=== PATIENT | male | born 1930 | race Caucasian/White ===

== ENCOUNTER 2016-12-14 16:23 | Inpatient (IN) | payer MEDICARE, BC ==
--- NOTE | ~2016-12-14 | CR72 ---
[facility] A Service of [facility] & [facility] RADIOLOGY TEXT RESULTS PATIENT: RYLEE JHAVERI LOCATION: [facility] [id number] : [birth year] UNIT #: [id number] AGE: [address]: Tammy Carlton MD SEX: M ORDER DR: [id number] [facility] [address] [place], [place] [address] [id number] I MR#: [id number] Acc #: [id number] NAME: RYLEE JHAVERI. : 1930 SEX: M STUDY DATE/TIME: 12/14/2016 18:16 UNIT: CEDOF ROOM: 48015 STUDY DESCRIPTION: CR Chest Single View Portable Attending Physician: Lor Silva M.D. Ordering Physician: Ed Daniel Sky M.D. Primary Care Physician: Faina Betancourt A.P.R.N. MEDICAL IMAGING REPORT This report is preliminary unless electronic signature is present EXAM Portable chest x-ray, 12/14/2016 HISTORY Cough and dyspnea. Short of air, weakness. Began today. FINDINGS 2 AP radiographs of the chest are presented. Comparison 12/12/2016. Degenerative changes in spine and shoulders without acute-appearing bony abnormality. Dextroscoliosis lower thoracic and visualized lumbar spine. Heart upper limits of normal in size to borderline enlarged. Stable appearance. The lungs are hyperinflated, suggesting underlying emphysema. The left lung is otherwise clear. New patchy airspace disease at the right lung base concerning for right basilar pneumonia. This is felt to be largely in the right lower lobe toward the base. There is some slight obscuration of inferior right heart border, which could reflect some degree of right middle lobe distribution. Follow up to resolution is recommended. Given distribution, correlate with any risk factors for aspiration. Dictated by... Jim Osorio M.D. THIS IS AN ELECTRONICALLY VERIFIED REPORT Jim Osorio M.D. at 12/15/2016 10:26 PM LUCIO/bushra TD: 12/15/2016 00:03 JOB #: [id number] MEDICAL IMAGING REPORT Page 1 of 1 COPY
--- NOTE | ~2016-12-14 | EKG ---
PATIENT: RYLEE JHAVERI UNIT #: [id number] Ventricular Rate: 90 BPM Atrial Rate: 90 BPM P-R Interval: 130 ms QRS Duration: 64 ms Q-T Interval: 350 ms QTC Calculation(Bezet): 428 ms P [place]: 90 degrees Calculated R [place]: 64 degrees Calculated T [place]: 77 degrees Diagnosis Line: Sinus rhythm with marked sinus arrhythmia Diagnosis Line: Otherwise normal ECG Diagnosis Line: When compared with ECG of 12-DEC-2016 19:26, Diagnosis Line: Premature ventricular complexes are no longer Diagnosis Line: Present Diagnosis Line: Premature supraventricular complexes are no longer Diagnosis Line: Present Diagnosis Line: Confirmed by DEIB LOPEZ MD ([id number]) on Diagnosis Line: 12/15/2016 8:49:11 AM INTERPRETING MD: JOHN ROSARIO
--- NOTE | ~2016-12-14 | DS ---
Unit #: [id number] #: [id number] Patient: RYLEE COHEN [id number] [address] [address] [id number] MR#: [id number] NAME: RYLEE COHEN. ROOM: 476 Age: 86 Sex: M Admission Date: 12/14/2016 : 1930 Discharge Date: 12/17/2016 Attending Physician: Tammy Carlton M.D. Primary Care Physician: Faina Betancourt A.P.R.N. DISCHARGE SUMMARY PRINCIPAL DIAGNOSES 1. Sepsis secondary to right lower lobe aspiration pneumonia. 2. 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 3. Chronic hypoxic respiratory failure maintained on two liters of oxygen per nasal cannula continuously. 4. Acute exacerbation of chronic obstructive pulmonary disease. 5. Odynophagia with pending EGD. 6. Dementia. 7. Severe vitamin B12 deficiency with vitamin B12 level of 169. 8. Moderate protein malnutrition. 9. Chronic systolic congestive heart failure with ejection fraction of 35% to 40%. No acute exacerbation. 10. Coronary artery disease. 11. History of aortic aneurysm. 12. Hyperlipidemia. 13. Benign prostatic hypertrophy per history. 14. Chronic back pain. 15. Dementia, moderate. 16. Spontaneous left periorbital ecchymosis. 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 Torre, Gastroenterology. PROCEDURES 1. EGD which is currently pending. 2. Chest x-ray on December 14, 2016, with underlying emphysema. Right basilar infiltrate noted. CLINICAL HISTORY AND HOSPITAL COURSE Mr. Cohen is an 86-year-old male who presented to the emergency department with shortness of breath. Patient was treated with steroids and bronchodilators. Chest x-ray however, revealed pneumonia, and patient was found to have an elevated white blood cell count of 16,000. The patient was subsequently admitted. In regards to patient's pneumonia, he was started on empiric IV antibiotics. Fortunately, the patient's leukocytosis resolved rather quickly, and he has remained afebrile throughout hospitalization. Given the location of his pneumonia, there are concerns for underlying aspiration particularly given patient's complaints of odynophagia and dysphagia as outlined below. The patient underwent a video swallow study which did not reveal any evidence of reflux nor any dysphagia. Patient was placed on a regular diet with thin liquids. I am going to change Unit #: [id number] #: [id number] Patient: RYLEE COHEN patient to oral Omnicef to complete a course of antibiotics as an outpatient. Patient did have an associated COPD exacerbation. He was placed on IV steroids, and these have been tapered down to pills. He will complete a very short course of steroids as an outpatient. I will note, his hypoxia remained at baseline. Patient had recurrent numerous complaints about heartburn and chest pain throughout hospitalization. Serial troponins remained negative and EKGs were unremarkable. This chest pain would happen at rest and was primarily associated with eating. Given this in combination with his probable aspiration pneumonia, Dr. Torre was consulted. Patient is to undergo EGD later today. Patient was found to be mildly anemic and significantly vitamin B12 deficient which we will replace orally on tablets as an outpatient with perhaps injections in the office if levels do not increase. I anticipate discharge home later today with home health given his mild deconditioning if EGD is unremarkable. DISCHARGE CONDITION Stable. DISCHARGE STATUS Discharge to home. DISCHARGE MEDICATIONS 1. Omnicef 300 mg b.i.d. 2. Prednisone 20 mg tablets, 2 tablets for 2 days, 1 tablet for 2 days, then discontinue. 3. Dulera 100/5 mcg 2 puffs b.i.d. 4. Protonix 40 mg daily. 5. Maalox 30 mL p.r.n. for indigestion. 6. Doxepin 10 mg daily. 7. Temazepam 30 mg at bedtime. 8. Colace 100 mg daily p.r.n. 9. Lutein 20 mg daily. 10. Daily multivitamin. 11. Vicodin ES 7.5/300 mg at bedtime. 12. Tramadol 50 mg p.o. q.6 hours p.r.n. for pain. 13. Os-Owen 500 plus D 1 daily. 14. Vitamin B12 at 1000 mcg p.o. daily. DISCHARGE INSTRUCTIONS 1. Patient can follow a regular diet. 2. He can increase his activity as tolerated. FOLLOWUP 1. With Dr. Torre as instructed. 2. With his primary care provider, Sb ColonRAngus, in two weeks. Time spent on discharge 34 minutes. Dictated by... Tammy Carlton M.D. Unit #: [id number] #: [id number] Patient: RYLEE COHEN PHYLLIS/stephanie TD: 12/19/2016 20:32 JOB #: [id number] DISCHARGE SUMMARY Page 1 of 1 X Tammy Carlton MD X DISCHARGE SUMMARY
--- NOTE | ~2016-12-14 | HP ---
Unit #: [id number] #: [id number] Patient: RYLEE JHAVERI [id number] [address] [place], [place] [address] [id number] I MR#: [id number] NAME: RYLEE JHAVERI. ROOM: 46776 Age: 86 Sex: M Admission Date: 12/14/2016 : 1930 Attending Physician: Lor Silva M.D. Primary Care Physician: Faina Betancourt A.P.R.N. HISTORY AND PHYSICAL CHIEF COMPLAINT Community-acquired pneumonia and COPD exacerbation. HISTORY OF PRESENT ILLNESS This pleasant 86-year-old male with COPD, BPH, and CAD with LV dysfunction, is admitted for community-acquired pneumonia. The family relates that about a month ago the patient developed spontaneous left periorbital ecchymosis. This however, improved. Patient's sister recently , and the patient went to the three days ago when he became increasingly short of breath. He was seen in our emergency department two days ago and was treated with steroids and bronchodilators after a negative chest x-ray was performed. He had return of his left periorbital ecchymosis without trauma. Then he experienced chills, nausea, and vomiting this morning, and a deep cough productive of yellow sputum this morning. He notes some pleuritic upper chest discomfort. He presented to this emergency department tonight with stable vital signs. Chest x-ray however, does show a new right lower lobe infiltrate. Patient is allergic to Keflex although has taken Zosyn without difficulty in the past. In the ER, he was treated with Solu-Medrol and a dose of Levaquin. He denies any symptoms of aspiration. PAST MEDICAL HISTORY 1. Chronic obstructive pulmonary disease on p.r.n. oxygen at 3 liters. 2. Non-ST elevation CO in January 2016 when patient was admitted for multifocal pneumonia. Echocardiogram revealed an ejection fraction of 35% to 40%. The patient was treated conservatively. 3. Small aortic aneurysm per family's history. 4. Hyperlipidemia. 5. Kidney stones. 6. Chronic back pain. 7. History of benign prostatic hypertrophy. 8. Mild dementia. 9. Right hip replacement. 10. Left rotator cuff repair. 11. Cystoscopy for prostate disease. ALLERGIES Keflex causes itching. HOME MEDICATIONS 1. Albuterol nebulizer and possibly a second inhaler. I am unsure. Unit #: [id number] #: [id number] Patient: RYLEE JHAVERI 2. Ultram 50 mg q.6 hours as needed. 3. Tylenol 2 tablets in the morning. 4. Lutein 20 mg daily for macular degeneration. 5. Multivitamin daily. 6. Restoril 30 mg at bedtime. 7. Prednisone recently started. 8. Calcium. 9. Aricept 10 mg daily. 10. Vicodin 7.5 mg at bedtime. 11. Stool softener. FAMILY HISTORY Noncontributory given patient's age. SOCIAL HISTORY The patient lives with his daughter. He stopped smoking in 1989 and stopped drinking alcohol at that time. REVIEW OF SYSTEMS Difficult to obtain as patient himself is a poor historian. He admits to chills, productive cough, shortness of breath, wheezing, pleuritic chest discomfort, COPD, CAD, and above-mentioned surgeries. All other systems were reviewed and are otherwise negative. PHYSICAL EXAMINATION GENERAL: A pleasant, 86-year-old male currently in no acute distress. VITAL SIGNS: Temperature 98.4, pulse 94, respirations 16, blood pressure 110/60, and O2 saturation 95% on 2 liters of oxygen. HEENT: Eyes PERRLA. Extraocular muscles are intact, status post cataract extraction. There is bruising left periorbital region. Pharynx is benign. NECK: Supple without adenopathy or thyromegaly. CHEST: End-expiratory wheeze and crackles at the right base. CARDIAC: Normal S1 and S2 without S3, S4, or murmur. ABDOMEN: Bowel sounds are present. No hepatosplenomegaly, tenderness, or masses. EXTREMITIES: Without edema. Pedal pulses are diminished. NEUROLOGIC: Patient is awake and alert. His cranial nerves are intact except that he is a bit hard of hearing. He has equal strength throughout but is generally weak on exam. DIAGNOSTIC STUDIES ADMISSION LABORATORY: Hematocrit is 36.9, white blood count 17.8, and normal platelet count, with 12 bands noted. SMA-12: Glucose 119, BUN 28, creatinine 1.6 which is patient's baseline, and albumin is 3.4. BNP is 174. Troponin is negative. IMAGING: Chest x-ray two days ago showed COPD. Today, it does show a new right lower lobe infiltrate. CARDIOLOGY: EKG sinus rhythm, rate 90, with APCs, otherwise normal. ASSESSMENT 1. Community-acquired pneumonia. 2. Chronic obstructive pulmonary disease exacerbation. 3. Spontaneous left periorbital ecchymosis probably related to coughing and vomiting in a patient who is elderly and recently started on prednisone. 4. Coronary artery disease with left ventricular dysfunction and Unit #: [id number] #: [id number] Patient: RYLEE JHAVERI ejection fraction 35% to 40%. 5. Chronic kidney disease. 6. Chronic back pain. 7. Benign prostatic hypertrophy. 8. Mild dementia. PLANS 1. Zosyn and doxycycline pending sputum cultures and blood cultures. 2. Swallowing evaluation by Speech Therapy in the morning. 3. Steroids and DuoNebs. 4. SCDs for DVT prophylaxis. 5. Patient has been seen by Dr. Armstrong in the past if a insurance processing clerk is necessary and patient is not improving with above-mentioned treatment. 1. Dictated by Henok Sommers/stephanie TD: 12/14/2016 21:35 JOB #: [id number] HISTORY AND PHYSICAL Page 1 of 1 X Lor Silva MD X HISTORY AND PHYSICAL
--- NOTE | ~2016-12-14 | EKG ---
PATIENT: RYLEE JHAVERI UNIT #: [id number] Ventricular Rate: 101 BPM Atrial Rate: 101 BPM P-R Interval: 136 ms QRS Duration: 68 ms Q-T Interval: 342 ms QTC Calculation(Bezet): 443 ms P [place]: 61 degrees Calculated R [place]: 53 degrees Calculated T [place]: 73 degrees Diagnosis Line: Sinus tachycardia Diagnosis Line: Low voltage QRS Diagnosis Line: Otherwise normal ECG Diagnosis Line: When compared with ECG of 14-DEC-2016 17:41, Diagnosis Line: No significant change was found Diagnosis Line: Confirmed by SHAKIRA COBB MD ([id number]) on 12/16/2016 Diagnosis Line: 6:08:59 PM INTERPRETING MD: JORDYN ROSARIO
--- NOTE | ~2016-12-14 | OR ---
Unit #: [id number] #: [id number] Patient: RYLEE JHAVERI [id number] [address] [address] [id number] I MR#: [id number] NAME: RYLEE JHAVERI. ROOM: 476 Date of Procedure: 12/17/2016 Admission Date: 12/14/2016 Surgeon: Gualberto Torre M.D. : 1930 Attending Physician: Tammy Carlton M.D. Primary Care Physician: Faina Betancourt A.P.R.N. PROCEDURE OPERATIVE NOTE PROCEDURE PERFORMED EGD with biopsy. INDICATION Patient with difficulty swallowing and painful swallowing. MEDICATIONS Monitored anesthesia. POSTOP FINDINGS 1. Mild Monse esophagitis. 2. Nonobstructing required esophageal ring. 3. Hiatal hernia. 4. Gastritis, mostly in antral area. 5. Possible (1) biopsies taken. 6. Mild duodenitis. PLAN PPI therapy. Add nystatin. Followup on pathology report. DESCRIPTION OF PROCEDURE The patient was explained the procedure, risks and benefits of anesthesia. He was brought to the endoscopy room. Propofol anesthesia was given. Bite block was placed. The scope was passed down the mouth into the esophagus, stomach, duodenum, and distal duodenum. Findings as described. Biopsies taken. The scope was gently pulled out. He tolerated it well. No immediate complications. Dictated by... Henok Moran/ashleigh TD: 12/31/2016 12:01 JOB #: [id number] Unit #: [id number] #: [id number] Patient: RYLEE JHAVERI PROCEDURE OPERATIVE NOTE Page 1 of 1 X Gualberto Torre MD X PROCEDURE OPERATIVE NOTE
--- NOTE | ~2016-12-14 | CO ---
Unit #: [id number] #: [id number] Patient: RYLEE COHEN [id number] [address] [place], [place] [address] [id number] I MR#: [id number] NAME: RYLEE COHEN. ROOM: 476 Age: 86 Sex: M Admission Date: 12/14/2016 : 1930 Attending Physician: Tammy Carlton M.D. Primary Care Physician: Faina Betancourt A.P.R.N. Consultation Date: 12/16/2016 CONSULTATION REPORT REASON FOR CONSULTATION Dysphagia. HISTORY OF PRESENT ILLNESS Mr. Cohen is an 86-year-old gentleman, who was admitted 2 days ago with complaints of indigestion. Since then, he has been having significant burning pain every time he eats. He is able to swallow however. He does have a history of GERD and esophageal ring that was dilated in 2010. He has been taking PPIs apparently in the past. There is no history of hematemesis. There is no history of any abdominal pain. There is no history of any bowel symptoms including blood in the stool. PAST MEDICAL HISTORY Significant for chronic respiratory failure, dementia, chronic kidney disease, chronic back pain, BPH. He is status post right hip replacement, left rotator cuff placement. ALLERGIES To Keflex. MEDICATIONS Including inhalers, IV steroids, PPIs, Ultram, Tylenol, Aricept, and Vicodin. FAMILY HISTORY Noncontributory. SOCIAL HISTORY Ex-smoker. Stopped drinking alcohol long time ago. REVIEW OF SYSTEMS Complete review of system was done. The patient is a poor historian. Review of all other systems was negative. PHYSICAL EXAMINATION VITAL SIGNS: Stable. Seems comfortable, mildly short of breath. Temperature 98.4, pulse 94, respirations 16, blood pressure 110/60. HEENT: Pupils equal and reactive. Sclerae anicteric. Oral mucosa moist. NECK: No JVD. No lymphadenopathy. CHEST: Scattered rhonchi. CARDIOVASCULAR: Regular rate and rhythm. No murmurs. ABDOMEN: Soft, nontender, and nondistended. EXTREMITIES: Without clubbing, cyanosis, or edema. Unit #: [id number] #: [id number] Patient: RYLEE COHEN NEUROLOGIC: Detailed examination deferred. No focal sensory or motor deficits grossly. DIAGNOSTIC STUDIES LABORATORY RESULTS: Hemoglobin of 11.1, white count 11.3. Creatinine at 1.5. Other chemistries normal. ASSESSMENT AND PLAN 1. The patient with significant burning pain with swallowing, possibility of esophageal esophagitis, possibly infectious. We will continue with Protonix for now. Given the persistence of symptoms, I would recommend an esophagogastroduodenoscopy for evaluation at this time, which will be carried out tomorrow. 2. Gastroesophageal reflux disease and history of esophageal ring. 3. Chronic kidney disease. 4. Chronic obstructive pulmonary disease and chronic respiratory failure. 5. Dementia. Thank you, for this interesting consult. We will follow along. Dictated by... Henok Moran/carolina TD: 12/17/2016 02:51 JOB #: [id number] CONSULTATION REPORT Page 1 of 1 X Gualberto Torre MD X CONSULTATION REPORT
[~2016-12-14 16:23] MED LIST: ACETAMINOPHEN PO; ALBUTEROL17 G1 IH; ALBUTEROL17 GM INH; ASPIRIN PO; ASPIRIN81 M1 PO; ASPIRIN81 MG PO; AUGMENTIN875 MG PO; BACTRIM DS TABL1 TA1 PO; BAYER CHEWABLE81 MG PO; BENTYL20 MG; CALCIUM 500 +1 EAC2; CALCIUM1 TAB.CHEW PO; COLACE50 MG PO; COMBIVENT U/D3 M1 INH; DEXILANT60 MG PO; DICYCLOMINE HCL20 MG PO; DILAUDID PAIN PUMP; DOXEPIN PO; FLOMAX0.4 M1 PO; HYDROCODONE PO; LEVAQUIN PO; LEVAQUIN750 MG PO; LIPITOR20 MG PO; LOPRESSOR PO; LORTAB 7.5-5001 TAB PO; LOTREL 5/10 MG1 CAP PO; MEDROL DOSEPAK4 MG PO; MEDROL PO; METFORMIN HCL500 M1 PO; MUCINEX; MUCINEX1200 MG/BO PO; NORVASC PO; OCUVITE TABLET1 TA1 PO; OCUVITE TABLET1 TAB PO; OXYGEN INH; PANTOPRAZOLE SO40 MG PO; PHENERGAN12.5 MG PO; PREDNISONE10 MG PO; PRILOSEC20 M1 PO; RAPAFLO8 MG PO; REGLAN; ROBITUSSIN A-C S5 ML PO; SILENOR3 MG PO; SINGULAIR PO; SMZ/TMP PO; SYMBICORT INH; TEMAZEPAM PO; TEMAZEPAM30 MG PO; TESSALON PERLE100 M1 PO; TUMS500 M1 PO; ZOCOR PO; ZOFRAN ODT4 MG PO; ZYRTEC PO; [UNRECOGNIZED DRUG - OTHER] PO
[2016-12-14 18:44] LABS: HEMATOCRIT 36.9 % (38.0-50.0); LYMPHOCYTE# 0.7 X10e3 (1.0-3.5); LYMPHOCYTE% 3.7 % (17.0-45.0); MEAN CELL VOLUME 95.5 FL (83-96); MEAN CORPUSCULAR HEMOGLOBIN 31.1 PG (28-34); MEAN CORPUSCULAR HGB CONC 32.6 g/dL (30-36); MEAN PLATELET VOLUME 8.1 FL (6.5-11.5); MONOCYTE# 1.1 X10e3 (0-1.0); MONOCYTE% 6.2 % (3.0-12.0); NEUTROPHIL% 90.1 % (40-75); PLATELET COUNT 285 X10e3 (140-420); RED BLOOD COUNT 3.86 X10e (3.90-5.60); RED CELL DISTRIBUTION WIDTH 14.6 % (11.0-15.5); WHITE BLOOD COUNT 17.8 X10e3 (4.0-10.5)
[2016-12-14 18:45] LABS: DIFF IND YES
[2016-12-14 18:53] LABS: POC - TROPONIN <0.05 ng/mL (<=0.05)
[2016-12-14 18:55] LABS: PARTIAL THROMBOPLASTIN TIME 32.9 SECONDS (23.5-31.3); PROTHROMBIN TIME (PATIENT) 10.8 SECONDS (9.6-11.5)
[2016-12-14 19:11] LABS: ALBUMIN SERUM 3.4 g/dL (3.5-5.0); BILIRUBIN, DIRECT 0.2 mg/dL (0.0-0.2); BILIRUBIN,INDIRECT 0.7 mg/dL (0.0-0.9); BILIRUBIN,TOTAL 0.9 mg/dL (0.2-2.0); BUN/CREATININE RATIO 17.5; CALCIUM SERUM 9.5 mg/dL (8.4-10.2); CREATININE SERUM 1.6 mg/dL (0.6-1.4); GLOM FILT RATE Estimated 37.9 mL/min (>60); POTASSIUM 4.4 mmol/L (3.5-5.1); PROTEIN TOTAL SERUM 6.2 g/dL (6.0-8.3)
[2016-12-14 19:30] LABS: PLATELET ESTIMATE NORMAL (NORMAL)
[2016-12-14 19:31] LABS: ANISOCYTOSIS SL
[2016-12-14] MEDS ORDERED: CENTRUM SILVER PO (20:28)
[2016-12-14] MEDS ORDERED: NATURAL LUTEIN20 MG PO (20:28)
[2016-12-14] MEDS ORDERED: TRAMADOL HCL50 M1 PO (20:28)
[2016-12-14] MEDS ORDERED: TEMAZEPAM30 MG PO (20:29)
[2016-12-14] MEDS ORDERED: PREDNISONE PO (20:32)
[2016-12-14] MEDS ORDERED: DOXEPIN PO (20:33)
[2016-12-14] MEDS ORDERED: CALCIUM500 M1 (20:33)
[2016-12-14] MEDS ORDERED: STOOL SOFTENER100 M1 PO (20:34)
[2016-12-14] MEDS ORDERED: VICODIN ES 7.51 EAC1 PO (20:34)
[2016-12-15 04:43] LABS: DIFF IND NO; HEMATOCRIT 39.1 % (38.0-50.0); HEMOGLOBIN 12.8 gm/dL (13.0-16.0); LYMPHOCYTE# 0.6 X10e3 (1.0-3.5); LYMPHOCYTE% 3.9 % (17.0-45.0); MEAN CELL VOLUME 95.2 FL (83-96); MEAN CORPUSCULAR HEMOGLOBIN 31.2 PG (28-34); MEAN CORPUSCULAR HGB CONC 32.8 g/dL (30-36); MEAN PLATELET VOLUME 8.1 FL (6.5-11.5); MONOCYTE# 0.3 X10e3 (0-1.0); NEUTROPHIL# 14.5 X10e3 (1.5-7.1); NEUTROPHIL% 94.1 % (40-75); PLATELET COUNT 310 X10e3 (140-420); RED BLOOD COUNT 4.11 X10e (3.90-5.60); WHITE BLOOD COUNT 15.4 X10e3 (4.0-10.5)
[2016-12-15 05:29] LABS: BUN/CREATININE RATIO 15.55; CALCIUM SERUM 9.6 mg/dL (8.4-10.2); CREATININE SERUM 1.8 mg/dL (0.6-1.4); GLOM FILT RATE Estimated 32.9 mL/min (>60); POTASSIUM 3.9 mmol/L (3.5-5.1)
[2016-12-15 06:16] LABS: %MB 3.3 % (0.0-4.0); MB 2.7 ng/ml
[2016-12-16 07:06] LABS: HEMOGLOBIN 11.1 gm/dL (13.0-16.0); MEAN CELL VOLUME 95.5 FL (83-96); MEAN CORPUSCULAR HGB CONC 32.5 g/dL (30-36); RED BLOOD COUNT 3.56 X10e (3.90-5.60); RED CELL DISTRIBUTION WIDTH 14.1 % (11.0-15.5); WHITE BLOOD COUNT 11.3 X10e3 (4.0-10.5)
[2016-12-16 08:31] LABS: BUN/CREATININE RATIO 22.66; CALCIUM SERUM 8.3 mg/dL (8.4-10.2); CREATININE SERUM 1.5 mg/dL (0.6-1.4); MAGNESIUM 2.3 mg/dL (1.6-3.0); POTASSIUM 4.2 mmol/L (3.5-5.1)
[2016-12-16 09:04] LABS: CK TOTAL 59 IU/L (36-174)
[2016-12-17 05:20] LABS: HEMATOCRIT 39.4 % (38.0-50.0); HEMOGLOBIN 12.5 gm/dL (13.0-16.0); MEAN CELL VOLUME 97.4 FL (83-96); MEAN CORPUSCULAR HEMOGLOBIN 30.9 PG (28-34); MEAN CORPUSCULAR HGB CONC 31.7 g/dL (30-36); MEAN PLATELET VOLUME 8.2 FL (6.5-11.5); RED BLOOD COUNT 4.05 X10e (3.90-5.60); RED CELL DISTRIBUTION WIDTH 14.5 % (11.0-15.5); WHITE BLOOD COUNT 11.7 X10e3 (4.0-10.5)
[2016-12-17 06:56] LABS: FERRITIN 319 ng/mL (24-336)
[2016-12-17 07:00] LABS: ALBUMIN SERUM 2.8 g/dL (3.5-5.0); BILIRUBIN,TOTAL 0.4 mg/dL (0.2-2.0); BUN/CREATININE RATIO 26.92; CALCIUM SERUM 8.5 mg/dL (8.4-10.2); CREATININE SERUM 1.3 mg/dL (0.6-1.4); GLOM FILT RATE Estimated 48.7 mL/min (>60); POTASSIUM 4.2 mmol/L (3.5-5.1); URIC ACID 4.7 mg/dL (2.6-7.2)
[2016-12-17] MEDS ORDERED: DULERA 100 MCG/13 GM INH (18:30)
[2016-12-17] MEDS ORDERED: PROTONIX40 M1 PO (18:31)
[2016-12-17] MEDS ORDERED: B-121000 MC1 PO (18:32)
[2016-12-17] MEDS ORDERED: CALCIUM 500 +1 EAC5 PO (18:32)
[2016-12-17] MEDS ORDERED: DELTASONE20 MG PO (18:33)
[2016-12-17] MEDS ORDERED: OMNICEF300 M1 PO (18:33)
[2016-12-17] MEDS ORDERED: NILSTAT PO (18:34)
== END 2016-12-17 20:44 | disposition home health service (06) | DRG 871 ==
LOC: CED 16:23 → CEDOF 21:00 → C4C 21:00 → CEDOF 21:12 → CED 21:12 → CEDOF 12-15 06:47 → C3A PCU 12-15 08:10 → C4C 12-17 07:55
PROVIDERS: Emergency Medicine; Internal Medicine
PROC: 0DB38ZX Excision of Lower Esophagus, Via Natural or Artificial Opening Endoscopic, Diagnostic (ICD-10-PCS; principal; 2016-12-17 14:33)
PROC: 0DB68ZX Excision of Stomach, Via Natural or Artificial Opening Endoscopic, Diagnostic (ICD-10-PCS; 2016-12-17 14:33)
DX: A41.9 Sepsis, unspecified organism (principal); J69.0 Pneumonitis due to inhalation of food and vomit; J96.10 Chronic respiratory failure, unspecified whether with hypoxia or hypercapnia; N17.9 Acute kidney failure, unspecified; N18.4 Chronic kidney disease, stage 4 (severe); E44.0 Moderate protein-calorie malnutrition; J44.1 Chronic obstructive pulmonary disease with (acute) exacerbation; B37.81 Candidal esophagitis; I13.0 Hypertensive heart and chronic kidney disease with heart failure and stage 1 through stage 4 chronic kidney disease, or unspecified chronic kidney disease; I50.22 Chronic systolic (congestive) heart failure; N40.0 Benign prostatic hyperplasia without lower urinary tract symptoms; I25.10 Atherosclerotic heart disease of native coronary artery without angina pectoris; Z99.81 Dependence on supplemental oxygen; E78.5 Hyperlipidemia, unspecified; Z87.442 Personal history of urinary calculi; F03.90 Unspecified dementia, unspecified severity, without behavioral disturbance, psychotic disturbance, mood disturbance, and anxiety; M54.9 Dorsalgia, unspecified; G89.29 Other chronic pain; Z96.641 Presence of right artificial hip joint; R58 Hemorrhage, not elsewhere classified; K21.9 Gastro-esophageal reflux disease without esophagitis; R13.10 Dysphagia, unspecified; R07.89 Other chest pain; K44.9 Diaphragmatic hernia without obstruction or gangrene; K29.70 Gastritis, unspecified, without bleeding; D51.9 Vitamin B12 deficiency anemia, unspecified; Z68.24 Body mass index [BMI] 24.0-24.9, adult
CPT/HCPCS: 36415; 71010; 74230; 80048; 80053; 80076; 82550; 82553; 82607; 82728; 83540; 83550; 83735; 83880; 84443; 84484; 84550; 85025; 85027; 85610; 85730; 87040; 87070; 87205; 88305; 88312; 92610; 92611; 93005; 94640; 94760; 96374; 97116; 97162; 97165; 97530; 97535; 99284; 99285; C9113; G8978-GP; G8979-GP; G8987-GO; G8988-GO; G8996-GN; G8997-GN; G8998-GN; J1956; J2405; J2543; J2920; J2930; J3420